=== PATIENT | female | born 1980 | race Caucasian/White ===

== ENCOUNTER 2021-08-05 17:03 | Emergency (ER) | payer SELFPAY ==
[2021-08-05 17:06] VITALS: BP 135/95; PULSE 110; RESP 22; O2SAT 99; BMI 33.6
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
[2021-08-05 18:47] VITALS: RESP 18
== END 2021-08-05 18:48 | disposition home or self-care (01) ==
PROVIDERS: Emergency Provider Emergency Medicine
DX: Z53.21 Procedure and treatment not carried out due to patient leaving prior to being seen by health care provider (principal); Y04.8XXA Assault by other bodily force, initial encounter
CPT/HCPCS: 99282